=== PATIENT | male | born 1970 | race Caucasian/White ===

== ENCOUNTER 2021-12-19 17:56 | Emergency (ER) | payer BC ==
[2021-12-19] MEDS ORDERED: Bacitracin Oint 1 GM U/D Packet TOP ONE (18:16)
[2021-12-19] MEDS ORDERED: Lidocaine 1% 5 ML VIAL INJECT ONE (18:16)
[2021-12-19] MEDS ORDERED: Diphtheria,Pertussis(Acell),Tetanus Vaccine 0.5 ML Syringe IM ONE (18:16)
== END 2021-12-19 19:46 | disposition home or self-care (01) ==
LOC: JP.ED 17:56
DX: S61.213A Laceration without foreign body of left middle finger without damage to nail, initial encounter (principal); S61.211A Laceration without foreign body of left index finger without damage to nail, initial encounter; Z79.899 Other long term (current) drug therapy; Z23 Encounter for immunization; W29.3XXA Contact with powered garden and outdoor hand tools and machinery, initial encounter
CPT/HCPCS: 12002; 90471; 90715; 99281; 99282-25